=== PATIENT | male | born 2000 | race Caucasian/White ===

== ENCOUNTER 2022-01-11 21:35 | Emergency (ER) | payer OTHER, SELFPAY ==
[2022-01-11 21:36] VITALS: BP 142/93; PULSE 99; RESP 17; TEMP 37.1; O2SAT 97; BMI 24.4
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
--- NOTE | 2022-01-11 21:53 | EKG12_ITS ---
Test Reason : DYSRHYTHMIA Blood Pressure : / mmHG Vent. Rate : 090 BPM Atrial Rate : 090 BPM P-R Int : 132 ms QRS Dur : 104 ms QT Int : 350 ms P-R-T Axes : 050 086 063 degrees QTc Int : 428 ms Normal sinus rhythm with sinus arrhythmia Incomplete right bundle branch block Confirmed by KYRIE NARAYAN, HORACIO ([id number]), general expeditor MARIA ISABEL RAUSCH ([id number]) on 01/13/2022 9:26:34 AM Referred By: ALEKSANDRA Confirmed By:HORACIO MITTAL MD
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
[2022-01-11 22:27] LABS: Absolute Lymphocyte Count 2.15 X10^3/uL (0.83-4.51); Absolute Neutrophil Count 4.1 X10^3/uL (2.0-7.7); Basophil# 0.01 X10^3/uL; Basophil% 0.1 % (0-1); Eosinophil# 0.05 X10^3/uL; Eosinophils% 0.7 % (0-5); Hematocrit 45.2 % (40-54); Hemoglobin 15.3 g/dL (13.0-16.5); Lymphocyte # 2.15 X10^3/ul (0.83-4.51); Lymphocyte % 30.9 % (19-41); Mean Corp Hgb Conc 33.8 g/dL (32-36); Mean Corpuscular Hgb 30.6 pg (27.0-32.0); Mean Corpuscular Volume 90.4 fL (80-94); Mean Platelet Vol. 10.3 fl (6.2-12.0); Monocyte# 0.52 X10^3/uL; Monocyte% 7.5 % (0-10); NRBC Flagged by Analyzer 0 % (0-5); Neutrophil # 4.12 X10^3/uL (2.7-7.7); Neutrophil % 59.4 % (47-70); Platelet Count 257 K/mm3 (150-450); RBC Distribution Width CV 12.5 % (11.6-14.6); RBC Distribution Width SD 41.4 fl (35.1-43.9)
[2022-01-11 22:41] LABS: Alcohol, Blood (Medical)-Serum < 3.0 mg/dL
[2022-01-11 22:44] LABS: ALB/GLOB Ratio 1.1 RATIO (0.9-2.4); AST(SGOT) 20 U/L (15-37); Alanine Aminotransfer ALT/SGPT 25 U/L (16-61); Albumin, Serum 3.9 g/dL (3.2-5.0); Alkaline Phosphatase 93 U/L (45-117); Anion Gap 7 (5-15); BUN 19 mg/dL (7-18); BUN/Creat Ratio 15.1 RATIO (10-20); Chloride 107 mmol/L (98-107); Creatinine, Serum 1.26 mg/dL (0.70-1.30); EST Glomerular Filtration Rate 78 mL/min (>60); Est Glom Filt Rate - Afr Amer 94 mL/min (>60); Estimated Creatinine Clearance 102.65 ml/min; Globulin 3.4 g/dL (2.2-4.2); Glucose 104 mg/dL (74-106); Potassium 3.5 mmol/L (3.5-5.1); Protein, Total 7.3 g/dL (6.4-8.2); Sodium Level 140 mmol/L (136-145)
[2022-01-11 22:48] LABS: Prothrombin Time (Protime)PT. 13.1 SECONDS (11.7-14.9)
[2022-01-11] MEDS: fentaNYL 100 MCG/2 ML Ampul 25 MCG IV (22:56)
[2022-01-11] MEDS: Ondansetron 4 MG/2 ML Vial IV (22:57)
[2022-01-11 23:45] VITALS: PULSE 96; RESP 15; O2SAT 98
[2022-01-11 23:59] VITALS: BP 134/77; PULSE 95; RESP 16; O2SAT 99
--- NOTE | 2022-01-12 01:19 | ED.RN ---
[facility] transport at bedside to transport patient to [facility]. Pt mother now wanting patient to go to [facility]. Dr Gage speaking with [facility] transfer line, they are accepting patient in the ED. [facility] transport to take patient to [facility]. Report called to [facility] ED and [facility] notified that patient is no longer coming to their facility.
== END 2022-01-12 01:25 | disposition short-term general hospital (02) ==
LOC: ED 23:15
PROVIDERS: Emergency Provider Student in an Organized Health Care Education/Training Program; Visit Provider Student in an Organized Health Care Education/Training Program
DX: S06.5XAA Traumatic subdural hemorrhage with loss of consciousness status unknown, initial encounter (principal); J98.2 Interstitial emphysema; S27.0XXA Traumatic pneumothorax, initial encounter; S30.0XXA Contusion of lower back and pelvis, initial encounter; S27.329A Contusion of lung, unspecified, initial encounter; V28.09XA Other motorcycle driver injured in noncollision transport accident in nontraffic accident, initial encounter
CPT/HCPCS: 70450; 71250; 72125; 74176; 80048; 80053; 82077; 85025; 85610; 93005; 96374; 96375; 99284; A4216; J2405